=== PATIENT | male | born 1925 | race Caucasian/White ===

== ENCOUNTER 2017-01-05 11:50 | Inpatient (IN) | payer OTHER ==
[~2017-01-05] VITALS: Ht 182.9 cm; Wt 85.0 kg
[2017-01-05 12:35] LABS: HEMATOCRIT 39.7 % (38.0-50.0); MCH 28.2 PG (29.0-34.0); MEAN PLAT.VOLUME 10.5 uM^3 (9.0-12.4); PLATELET COUNT 195 K/uL (156-360); RBC DIS.WIDTH-CV 15.9 % (11.8-14.6); RBC DIS.WIDTH-SD 51.4 % (39-53); RED BLOOD COUNT 4.51 M/uL (4.00-5.50)
[2017-01-05 12:47] LABS: CHLORIDE 100 mEq/L (99-109); POTASSIUM 3.6 mEq/L (3.7-5.4); SODIUM 135 mEq/L (136-147)
[2017-01-05 12:49] LABS: GLUCOSE 149 mg/dL (70-99)
[2017-01-05 12:51] LABS: ANION GAP 9 MEQ/L (2-14)
[2017-01-05 12:53] LABS: GFR ESTIMATE (CALCULATED) > 59 mL/min/
[2017-01-05 12:54] LABS: UREA NITROGEN (BUN) 18 mg/dL (9-23)
[2017-01-05 12:57] LABS: TROP-I INTERPRETATION NEGATIVE; TROPONIN-I 0.02 ng/mL (0.0-0.30)
[2017-01-05] MEDS ORDERED: MIRTAZAPINE15 MG PO (15:32)
[2017-01-05] MEDS ORDERED: FLOMAX0.4 MG PO (15:32)
[2017-01-05] MEDS ORDERED: SYNTHROID25 MCG PO (15:33)
[2017-01-05] MEDS ORDERED: TOPROL XL50 MG PO (15:34)
[2017-01-05] MEDS ORDERED: CALAN120 MG PO (15:35)
[2017-01-05] MEDS ORDERED: ELIQUIS5 MG PO (15:35)
[2017-01-05] MEDS ORDERED: LASIX40 MG PO (15:36)
[2017-01-05] MEDS ORDERED: MEVACOR10 M1 PO (15:36)
[2017-01-05] MEDS ORDERED: LASIX20 MG PO (15:37)
[2017-01-05 20:00] VITALS: BP 150/72
[2017-01-05 21:24] LABS: INTER. NORMALIZED RATIO 1.3; PROTHROMBIN TIME 13.8 (9.2-11.2)
[2017-01-06 00:01] VITALS: BP 140/67
[2017-01-06 01:37] LABS: TROP-I INTERPRETATION NEGATIVE; TROPONIN-I 0.01 ng/mL (0.0-0.30)
[2017-01-06 03:28] LABS: MCH 28.5 PG (29.0-34.0); MCHC 32.6 G/DL (30.0-36.0); MCV 87.6 FL (86-99); MEAN PLAT.VOLUME 9.9 uM^3 (9.0-12.4); PLATELET COUNT 156 K/uL (156-360); RBC DIS.WIDTH-CV 15.7 % (11.8-14.6); RBC DIS.WIDTH-SD 50.5 % (39-53); RED BLOOD COUNT 3.54 M/uL (4.00-5.50); WHITE BLOOD COUNT 10.1 K/uL (4.1-10.2)
[2017-01-06 03:37] LABS: CHLORIDE 117 mEq/L (99-109); POTASSIUM 4.9 mEq/L (3.7-5.4)
[2017-01-06 03:45] LABS: SODIUM 155 mEq/L (136-147)
[2017-01-06 03:48] LABS: TROP-I INTERPRETATION NEGATIVE; TROPONIN-I 0.03 ng/mL (0.0-0.30)
[2017-01-06 03:56] LABS: ANION GAP 7 MEQ/L (2-14)
[2017-01-06 04:04] LABS: GLUCOSE 92 mg/dL (70-99)
[2017-01-06 04:07] LABS: GFR ESTIMATE (CALCULATED) > 59 mL/min/
[2017-01-06 04:08] LABS: UREA NITROGEN (BUN) 17 mg/dL (9-23)
[2017-01-06 04:37] VITALS: BP 138/81
[2017-01-06 08:08] VITALS: BP 142/73
[2017-01-06 10:12] LABS: INTERNAL CONTROL VALID? YES
[2017-01-06 11:32] VITALS: BP 130/71
[2017-01-06 16:21] VITALS: BP 140/75
[2017-01-06 18:21] LABS: ANION GAP 8 MEQ/L (2-14); CHLORIDE 100 MEQ/L (99-109); GFR ESTIMATE (CALCULATED) > 59 mL/min/; GLUCOSE 112 mg/dL (70-99); POTASSIUM 4.2 MEQ/L (3.7-5.4); SAMPLE HEMOLYSIS CHECK 0; SAMPLE ICTERIC CHECK 0; SAMPLE LIPEMIA CHECK 0; UREA NITROGEN (BUN) 19 mg/dL (9-23)
[2017-01-06 18:22] LABS: SODIUM 136 MEQ/L (136-147)
[2017-01-06 18:39] LABS: CREATINE KINASE 48 IU/L (1-294); TOTAL CK 48 IU/L (1-294)
[2017-01-06 19:27] LABS: CK-MB 2.6 ng/mL (0.0-4.9)
[2017-01-06 20:00] VITALS: BP 141/67
[2017-01-07 00:04] VITALS: BP 143/71
[2017-01-07 04:28] VITALS: BP 145/76
[2017-01-07 07:08] LABS: BASOPHIL COUNT 0.1 K/uL (0-0.1); EOSINOPHIL (%) 3.4 % (0-5); EOSINOPHIL COUNT 0.3 K/uL (0-0.3); HEMATOCRIT 31.3 % (38.0-50.0); IMMATURE GRANULOCYTE (%) 0.3 % (0.0-0.7); INSTRUMENT ABS NEUTROPHIL CT 4.3 K/uL; LYMPHOCYTE COUNT 3.1 K/uL (1.0-2.8); MCH 28.2 PG (29.0-34.0); MCHC 31.6 G/DL (30.0-36.0); MCV 89.2 FL (86-99); MEAN PLAT.VOLUME 9.9 uM^3 (9.0-12.4); MONOCYTE (%) 10.4 % (3-12); MONOCYTE COUNT 0.9 K/uL (0-0.8); NEUTROPHIL (%) 49.6 % (45-76); NEUTROPHIL COUNT 4.3 K/uL (1.8-6.4); PLATELET COUNT 134 K/uL (156-360); RBC DIS.WIDTH-CV 15.8 % (11.8-14.6); RBC DIS.WIDTH-SD 51.8 % (39-53); RED BLOOD COUNT 3.51 M/uL (4.00-5.50); WHITE BLOOD COUNT 8.7 K/uL (4.1-10.2)
[2017-01-07 07:30] LABS: ANION GAP 5 MEQ/L (2-14); CHLORIDE 100 MEQ/L (99-109); GFR ESTIMATE (CALCULATED) > 59 mL/min/; GLUCOSE 84 mg/dL (70-99); POTASSIUM 3.9 MEQ/L (3.7-5.4); SAMPLE HEMOLYSIS CHECK 0; SAMPLE ICTERIC CHECK 0; SAMPLE LIPEMIA CHECK 0; SODIUM 136 MEQ/L (136-147); UREA NITROGEN (BUN) 18 mg/dL (9-23)
[2017-01-07 08:43] VITALS: BP 160/84
[2017-01-07 15:55] VITALS: BP 144/78
[2017-01-07 17:22] LABS: CREATINE KINASE 41 IU/L (1-294); TOTAL CK 41 IU/L (1-294)
[2017-01-07 17:41] LABS: CK-MB 2.7 ng/mL (0.0-4.9)
[2017-01-07 20:12] VITALS: BP 154/76
[2017-01-08] VITALS (7 sets, daily range): BP systolic 97–177; BP diastolic 69–83
[2017-01-08 07:19] LABS: BASOPHIL COUNT 0.1 K/uL (0-0.1); EOSINOPHIL (%) 2.3 % (0-5); EOSINOPHIL COUNT 0.2 K/uL (0-0.3); HEMATOCRIT 31.7 % (38.0-50.0); IMMATURE GRANULOCYTE (%) 0.3 % (0.0-0.7); INSTRUMENT ABS NEUTROPHIL CT 4.6 K/uL; LYMPHOCYTE COUNT 3.4 K/uL (1.0-2.8); MCH 28.3 PG (29.0-34.0); MCHC 32.2 G/DL (30.0-36.0); MCV 87.8 FL (86-99); MEAN PLAT.VOLUME 10.5 uM^3 (9.0-12.4); MONOCYTE (%) 11.5 % (3-12); MONOCYTE COUNT 1.1 K/uL (0-0.8); NEUTROPHIL COUNT 4.6 K/uL (1.8-6.4); PLATELET COUNT 141 K/uL (156-360); RBC DIS.WIDTH-CV 15.7 % (11.8-14.6); RED BLOOD COUNT 3.61 M/uL (4.00-5.50); WHITE BLOOD COUNT 9.5 K/uL (4.1-10.2)
[2017-01-08 07:43] LABS: ANION GAP 7 MEQ/L (2-14); CHLORIDE 100 MEQ/L (99-109); GFR ESTIMATE (CALCULATED) > 59 mL/min/; GLUCOSE 88 mg/dL (70-99); POTASSIUM 4.1 MEQ/L (3.7-5.4); SAMPLE HEMOLYSIS CHECK 0; SAMPLE ICTERIC CHECK 0; SAMPLE LIPEMIA CHECK 0; SODIUM 139 MEQ/L (136-147); UREA NITROGEN (BUN) 19 mg/dL (9-23)
[2017-01-08 11:58] LABS: TYPE OF FLUID THORACENTESIS
[2017-01-08 12:48] LABS: BODY FLUID LDH 52 IU/L
[2017-01-08 12:52] LABS: BODY FLUID PROTEIN < 3.0 G/DL
[2017-01-08 12:59] LABS: BODY FLUID EOSINOPHILS 0 % (0-25); BODY FLUID RBC'S < 1000 /MM^3 (0-100); BODY FLUID WBC'S 242 /MM^3 (0-500); MONONUCLEAR WBC'S 73 %; POLYNUCLEAR WBC'S 27 % (0-25)
[2017-01-09 03:38] VITALS: BP 155/76
[2017-01-09 07:26] LABS: CHLORIDE 101 MEQ/L (99-109); GFR ESTIMATE (CALCULATED) > 59 mL/min/; GLUCOSE 92 mg/dL (70-99); POTASSIUM 3.4 MEQ/L (3.7-5.4); SAMPLE HEMOLYSIS CHECK 0; SAMPLE ICTERIC CHECK 0; SAMPLE LIPEMIA CHECK 0; SODIUM 139 MEQ/L (136-147); UREA NITROGEN (BUN) 20 mg/dL (9-23)
[2017-01-09 07:27] LABS: ANION GAP 7 MEQ/L (2-14)
[2017-01-09 07:56] VITALS: BP 169/81
[2017-01-09 12:02] VITALS: BP 120/60; BP 169/79
[2017-01-09 16:02] VITALS: BP 144/69
[2017-01-09 20:00] VITALS: BP 162/78
[2017-01-10 00:43] VITALS: BP 147/87
[2017-01-10 01:25] LABS: BODY FLUID PH 7.9 (())
[2017-01-10 03:38] VITALS: BP 146/72
[2017-01-10 04:26] LABS: BASOPHIL COUNT 0.1 K/uL (0-0.1); EOSINOPHIL (%) 2.3 % (0-5); EOSINOPHIL COUNT 0.2 K/uL (0-0.3); HEMATOCRIT 33.3 % (38.0-50.0); IMMATURE GRANULOCYTE (%) 0.2 % (0.0-0.7); INSTRUMENT ABS NEUTROPHIL CT 4.8 K/uL; LYMPHOCYTE COUNT 3.7 K/uL (1.0-2.8); MCH 28.1 PG (29.0-34.0); MCHC 32.4 G/DL (30.0-36.0); MCV 86.7 FL (86-99); MEAN PLAT.VOLUME 10.2 uM^3 (9.0-12.4); MONOCYTE (%) 10.9 % (3-12); MONOCYTE COUNT 1.1 K/uL (0-0.8); NEUTROPHIL (%) 48.5 % (45-76); NEUTROPHIL COUNT 4.8 K/uL (1.8-6.4); PLATELET COUNT 157 K/uL (156-360); RBC DIS.WIDTH-CV 15.9 % (11.8-14.6); RED BLOOD COUNT 3.84 M/uL (4.00-5.50); WHITE BLOOD COUNT 9.9 K/uL (4.1-10.2)
[2017-01-10 04:40] LABS: POTASSIUM 3.5 mEq/L (3.7-5.4); SODIUM 139 mEq/L (136-147)
[2017-01-10 04:42] LABS: GLUCOSE 108 mg/dL (70-99)
[2017-01-10 04:43] LABS: ANION GAP 7 MEQ/L (2-14)
[2017-01-10 04:45] LABS: GFR ESTIMATE (CALCULATED) 55 mL/min/
[2017-01-10 04:46] LABS: UREA NITROGEN (BUN) 24 mg/dL (9-23)
[2017-01-10 04:53] LABS: CHLORIDE 102 mEq/L (99-109)
[2017-01-10 08:07] VITALS: BP 175/79
[2017-01-10 11:27] VITALS: BP 142/64
[2017-01-10 15:47] VITALS: BP 153/72
[2017-01-10 19:44] VITALS: BP 144/72
[2017-01-11] VITALS (8 sets, daily range): BP systolic 139–155; BP diastolic 66–80
[2017-01-11 08:04] LABS: BASOPHIL COUNT 0.1 K/uL (0-0.1); EOSINOPHIL (%) 3.2 % (0-5); EOSINOPHIL COUNT 0.3 K/uL (0-0.3); HEMATOCRIT 31.3 % (38.0-50.0); IMMATURE GRANULOCYTE (%) 0.2 % (0.0-0.7); INSTRUMENT ABS NEUTROPHIL CT 3.9 K/uL; LYMPHOCYTE COUNT 3.5 K/uL (1.0-2.8); MCHC 31.9 G/DL (30.0-36.0); MCV 87.7 FL (86-99); MEAN PLAT.VOLUME 10.7 uM^3 (9.0-12.4); MONOCYTE (%) 10.4 % (3-12); MONOCYTE COUNT 0.9 K/uL (0-0.8); NEUTROPHIL (%) 45.5 % (45-76); NEUTROPHIL COUNT 3.9 K/uL (1.8-6.4); PLATELET COUNT 139 K/uL (156-360); RBC DIS.WIDTH-CV 15.8 % (11.8-14.6); RBC DIS.WIDTH-SD 51.5 % (39-53); RED BLOOD COUNT 3.57 M/uL (4.00-5.50); WHITE BLOOD COUNT 8.6 K/uL (4.1-10.2)
[2017-01-11 08:30] LABS: ANION GAP 6 MEQ/L (2-14); CHLORIDE 102 MEQ/L (99-109); GFR ESTIMATE (CALCULATED) > 59 mL/min/; GLUCOSE 98 mg/dL (70-99); POTASSIUM 3.6 MEQ/L (3.7-5.4); SAMPLE HEMOLYSIS CHECK 0; SAMPLE ICTERIC CHECK 0; SAMPLE LIPEMIA CHECK 0; SODIUM 138 MEQ/L (136-147); UREA NITROGEN (BUN) 23 mg/dL (9-23)
[2017-01-12] VITALS: BP 156/74
[2017-01-12 04:00] VITALS: BP 151/70
[2017-01-12 07:14] VITALS: BP 144/62
[2017-01-12 07:22] LABS: EOSINOPHIL (%) 3.3 % (0-5); EOSINOPHIL COUNT 0.3 K/uL (0-0.3); HEMATOCRIT 32.9 % (38.0-50.0); IMMATURE GRANULOCYTE (%) 0.3 % (0.0-0.7); INSTRUMENT ABS NEUTROPHIL CT 4.2 K/uL; LYMPHOCYTE COUNT 3.4 K/uL (1.0-2.8); MCH 27.5 PG (29.0-34.0); MCHC 31.3 G/DL (30.0-36.0); MEAN PLAT.VOLUME 10.7 uM^3 (9.0-12.4); MONOCYTE (%) 10.1 % (3-12); MONOCYTE COUNT 0.9 K/uL (0-0.8); NEUTROPHIL (%) 47.6 % (45-76); NEUTROPHIL COUNT 4.2 K/uL (1.8-6.4); PLATELET COUNT 141 K/uL (156-360); RBC DIS.WIDTH-CV 16.1 % (11.8-14.6); RBC DIS.WIDTH-SD 52.1 % (39-53); RED BLOOD COUNT 3.74 M/uL (4.00-5.50); WHITE BLOOD COUNT 8.8 K/uL (4.1-10.2)
[2017-01-12 07:53] LABS: ANION GAP 7 MEQ/L (2-14); CHLORIDE 103 MEQ/L (99-109); GFR ESTIMATE (CALCULATED) > 59 mL/min/; GLUCOSE 100 mg/dL (70-99); POTASSIUM 3.7 MEQ/L (3.7-5.4); SAMPLE HEMOLYSIS CHECK 0; SAMPLE ICTERIC CHECK 0; SAMPLE LIPEMIA CHECK 0; SODIUM 139 MEQ/L (136-147); UREA NITROGEN (BUN) 23 mg/dL (9-23)
[2017-01-12 10:35] VITALS: BP 130/67
[2017-01-12] MEDS ORDERED: DUONEB 2.5-0.5 M3 ML AEROSOL (12:22)
[2017-01-12] MEDS ORDERED: CEPHALEXIN500 MG PO (12:22)
[2017-01-12] MEDS ORDERED: CARVEDILOL3.125 MG PO (12:23)
[2017-01-12] MEDS ORDERED: K-DUR20 MEQ PO (12:24)
[2017-01-12] MEDS ORDERED: FUROSEMIDE40 MG PO (12:24)
[2017-01-12] MEDS ORDERED: ASPIR-LOW81 MG PO (12:24)
[2017-01-12] MEDS ORDERED: FAMOTIDINE20 MG PO (12:25)
[2017-01-12] MEDS ORDERED: LOSARTAN POTASS50 MG PO (12:28)
== END 2017-01-12 14:47 | DRG 291 ==
LOC: EME 11:50 → EDOF 14:34 → 5SOUTH 14:34
PROVIDERS: Internal Medicine; Internal Medicine Pulmonary Disease; Nurse Practitioner Adult Health; Physician Assistant Medical
PROC: 0H9BXZX Drainage of Right Upper Arm Skin, External Approach, Diagnostic (ICD-10-PCS; principal; 2017-01-07)
PROC: 0W993ZZ Drainage of Right Pleural Cavity, Percutaneous Approach (ICD-10-PCS; 2017-01-08)
DX: I11.0 Hypertensive heart disease with heart failure (principal); J96.01 Acute respiratory failure with hypoxia; J18.9 Pneumonia, unspecified organism; E87.1 Hypo-osmolality and hyponatremia; T80.1XXA Vascular complications following infusion, transfusion and therapeutic injection, initial encounter; J98.11 Atelectasis; L02.413 Cutaneous abscess of right upper limb; L03.113 Cellulitis of right upper limb; J90 Pleural effusion, not elsewhere classified; I50.33 Acute on chronic diastolic (congestive) heart failure; Z99.3 Dependence on wheelchair; E87.6 Hypokalemia; E11.65 Type 2 diabetes mellitus with hyperglycemia; E78.2 Mixed hyperlipidemia; I80.8 Phlebitis and thrombophlebitis of other sites; Y84.8 Other medical procedures as the cause of abnormal reaction of the patient, or of later complication, without mention of misadventure at the time of the procedure; Y92.239 Unspecified place in hospital as the place of occurrence of the external cause; E03.9 Hypothyroidism, unspecified; F03.90 Unspecified dementia, unspecified severity, without behavioral disturbance, psychotic disturbance, mood disturbance, and anxiety; I27.2 Other secondary pulmonary hypertension; I34.0 Nonrheumatic mitral (valve) insufficiency; Z86.718 Personal history of other venous thrombosis and embolism; N40.0 Benign prostatic hyperplasia without lower urinary tract symptoms; S40.021A Contusion of right upper arm, initial encounter
CPT/HCPCS: 71020; 71275; 73200; 73201; 80048; 80048 91; 82436; 82550; 82553; 82945; 83605; 83615 91; 83880; 83930; 83935; 83986 90; 84133; 84157; 84300; 84484; 85025; 85027; 85610; 85730; 87040; 87070; 87075; 87116; 87205; 87206; 87449; 88108; 88305; 89051; 93005; 93306; 93970; 93971; 94640; 94640 76; 94760; 94799; 97530 GO; 97530 GP; 99202; 99281; 99285; C1894; J0690; J1650; J1940; J1956; J3370; J7050; J7070; S0030

== ENCOUNTER 2017-06-29 21:01 | Inpatient (IN) | payer OTHER ==
[~2017-06-29] VITALS: Ht 182.9 cm; Wt 85.0 kg
[~2017-06-29 21:01] MED LIST: ASPIR-LOW81 MG PO; CALAN120 MG PO; CARVEDILOL3.125 MG PO; CEPHALEXIN500 MG PO; DUONEB 2.5-0.5 M3 ML AEROSOL; ELIQUIS5 MG PO; FAMOTIDINE20 MG PO; FLOMAX0.4 MG PO; FUROSEMIDE40 MG PO; K-DUR20 MEQ PO; LASIX20 MG PO; LASIX40 MG PO; LOSARTAN POTASS50 MG PO; MEVACOR10 M1 PO; MIRTAZAPINE15 MG PO; SYNTHROID25 MCG PO; TOPROL XL50 MG PO
[2017-06-29 22:51] LABS: BASOPHIL COUNT 0.1 K/uL (0-0.1); EOSINOPHIL COUNT 0.6 K/uL (0-0.3); HEMATOCRIT 36.4 % (38.0-50.0); IMMATURE GRANULOCYTE (%) 0.2 % (0.0-0.7); INSTRUMENT ABS NEUTROPHIL CT 3.8 K/uL; LYMPHOCYTE COUNT 3.3 K/uL (1.0-2.8); MCH 28.7 PG (29.0-34.0); MCHC 32.7 G/DL (30.0-36.0); MCV 87.9 FL (86-99); MEAN PLAT.VOLUME 10.2 uM^3 (9.0-12.4); MONOCYTE (%) 8.2 % (3-12); MONOCYTE COUNT 0.7 K/uL (0-0.8); NEUTROPHIL (%) 45.2 % (45-76); NEUTROPHIL COUNT 3.8 K/uL (1.8-6.4); PLATELET COUNT 136 K/uL (156-360); RBC DIS.WIDTH-CV 14.8 % (11.8-14.6); RBC DIS.WIDTH-SD 47.6 % (39-53); RED BLOOD COUNT 4.14 M/uL (4.00-5.50); WHITE BLOOD COUNT 8.4 K/uL (4.1-10.2)
[2017-06-29 22:55] LABS: INTER. NORMALIZED RATIO 1.4; PROTHROMBIN TIME 15.5 SEC (10.2-12.9)
[2017-06-29 22:59] LABS: CHLORIDE 110 mEq/L (99-109); POTASSIUM 4.3 mEq/L (3.7-5.4); SODIUM 143 mEq/L (136-147)
[2017-06-29 23:02] LABS: ANION GAP 10 MEQ/L (2-14)
[2017-06-29 23:03] LABS: TOTAL BILIRUBIN 0.4 mg/dL (0.0-1.0)
[2017-06-29 23:05] LABS: ALKALINE PHOSPHATASE 88 IU/L (3-129); GFR ESTIMATE (CALCULATED) 47 mL/min/
[2017-06-29 23:06] LABS: UREA NITROGEN (BUN) 23 mg/dL (9-23)
[2017-06-29 23:11] LABS: GLUCOSE 114 mg/dL (70-99)
[2017-06-30 05:14] VITALS: BP 192/95
[2017-06-30 05:35] LABS: BASOPHIL COUNT 0.1 K/uL (0-0.1); EOSINOPHIL (%) 6.7 % (0-5); EOSINOPHIL COUNT 0.7 K/uL (0-0.3); HEMATOCRIT 38.7 % (38.0-50.0); IMMATURE GRANULOCYTE (%) 0.1 % (0.0-0.7); INSTRUMENT ABS NEUTROPHIL CT 3.2 K/uL; LYMPHOCYTE COUNT 5.5 K/uL (1.0-2.8); MCH 29.5 PG (29.0-34.0); MCHC 33.3 G/DL (30.0-36.0); MCV 88.4 FL (86-99); MEAN PLAT.VOLUME 10.6 uM^3 (9.0-12.4); MONOCYTE COUNT 0.8 K/uL (0-0.8); NEUTROPHIL (%) 31.2 % (45-76); NEUTROPHIL COUNT 3.2 K/uL (1.8-6.4); PLATELET COUNT 156 K/uL (156-360); RBC DIS.WIDTH-CV 14.7 % (11.8-14.6); RBC DIS.WIDTH-SD 47.8 % (39-53); RED BLOOD COUNT 4.38 M/uL (4.00-5.50); WHITE BLOOD COUNT 10.4 K/uL (4.1-10.2)
[2017-06-30 05:57] LABS: ANION GAP 8 MEQ/L (2-14); CHLORIDE 108 MEQ/L (99-109); GFR ESTIMATE (CALCULATED) 47 mL/min/; GLUCOSE 101 mg/dL (70-99); HDL CHOLESTEROL 39 MG/DL (Desirable>=40); LDL CHOLESTEROL 71 mg/dL (Desirable<100); NON-HDL CHOLESTEROL 84 mg/dL (Desirable<160); POTASSIUM 4.1 MEQ/L (3.7-5.4); SAMPLE HEMOLYSIS CHECK 0; SAMPLE ICTERIC CHECK 0; SAMPLE LIPEMIA CHECK 0; SODIUM 144 MEQ/L (136-147); TOTAL CHOLESTEROL 123 mg/dL (Desirable<200); TRIGLYCERIDES 67 MG/DL (Normal: <150); UREA NITROGEN (BUN) 24 mg/dL (9-23)
[2017-06-30 06:04] LABS: ADD MIUA? YES; BILIRUBIN NEGATIVE; BLOOD MODERATE; COLOR YELLOW ((YELLOW)); GLUCOSE (STRIP) NEGATIVE; KETONES NEGATIVE; LEUKOCYTES TRACE; NITRITE NEGATIVE; PROTEIN (STRIP) NEGATIVE; SPECIFIC GRAVITY 1.009 (1.000-1.030); UROBILINOGEN 0.2 MG/DL (0.2-1.0)
[2017-06-30 06:30] VITALS: BP 178/80
[2017-06-30 06:34] LABS: BACTERIA NONE SEEN /HPF; EPITHELIAL CELLS RARE /HPF; HYALINE CASTS 0-5 /LPF; MUCUS TRACE /LPF; RED BLOOD CELLS 15-20 /HPF (0-5)
[2017-06-30 07:35] LABS: Estimated Average Glucose 131 mg/dL (70-123); HEMOGLOBIN A1c (GLYCOHEMOGLOB) 6.2 % HGB (Below 5.7)
[2017-06-30 09:34] VITALS: BP 159/81
[2017-06-30 12:12] VITALS: BP 177/84
[2017-06-30] MEDS ORDERED: SYNTHROID25 MCG PO (12:44)
[2017-06-30] MEDS ORDERED: PEPCID40 MG PO (12:46)
[2017-06-30] MEDS ORDERED: VERAPAMIL HCL120 M2 PO (12:48)
[2017-06-30] MEDS ORDERED: LOVASTATIN10 MG PO (12:49)
[2017-06-30] MEDS ORDERED: LASIX20 MG PO (12:51)
[2017-06-30] MEDS ORDERED: POTASSIUM CHLO20 ME2 PO (12:55)
[2017-06-30] MEDS ORDERED: FLOMAX0.4 MG PO (13:08)
[2017-06-30] MEDS ORDERED: REMERON15 M2 PO (13:12)
[2017-06-30 17:37] LABS: POINT-OF-CARE METER ID UU13113831
[2017-06-30 20:00] VITALS: BP 178/89
[2017-06-30 21:30] LABS: POINT-OF-CARE METER ID UU13113831
[2017-07-01 01:09] VITALS: BP 163/79
[2017-07-01 04:20] VITALS: BP 166/80
[2017-07-01 05:33] LABS: BASOPHIL COUNT 0.1 K/uL (0-0.1); EOSINOPHIL COUNT 0.7 K/uL (0-0.3); HEMATOCRIT 33.7 % (38.0-50.0); IMMATURE GRANULOCYTE (%) 0.2 % (0.0-0.7); INSTRUMENT ABS NEUTROPHIL CT 3.3 K/uL; LYMPHOCYTE COUNT 3.4 K/uL (1.0-2.8); MCHC 33.5 G/DL (30.0-36.0); MCV 89.4 FL (86-99); MEAN PLAT.VOLUME 11.2 uM^3 (9.0-12.4); MONOCYTE (%) 7.8 % (3-12); MONOCYTE COUNT 0.6 K/uL (0-0.8); NEUTROPHIL (%) 40.9 % (45-76); NEUTROPHIL COUNT 3.3 K/uL (1.8-6.4); PLATELET COUNT 141 K/uL (156-360); RBC DIS.WIDTH-CV 14.7 % (11.8-14.6); RBC DIS.WIDTH-SD 48.7 % (39-53); RED BLOOD COUNT 3.77 M/uL (4.00-5.50); WHITE BLOOD COUNT 8.1 K/uL (4.1-10.2)
[2017-07-01 05:56] LABS: ANION GAP 6 MEQ/L (2-14); CHLORIDE 108 MEQ/L (99-109); GFR ESTIMATE (CALCULATED) 55 mL/min/; GLUCOSE 83 mg/dL (70-99); POTASSIUM 3.8 MEQ/L (3.7-5.4); SAMPLE HEMOLYSIS CHECK 0; SAMPLE ICTERIC CHECK 0; SAMPLE LIPEMIA CHECK 0; SODIUM 140 MEQ/L (136-147); UREA NITROGEN (BUN) 25 mg/dL (9-23)
[2017-07-01 08:08] LABS: POINT-OF-CARE METER ID UU13113700
[2017-07-01 09:00] VITALS: BP 168/70
[2017-07-01] MEDS ORDERED: ASPIR-LOW81 MG PO (10:16)
[2017-07-01] MEDS ORDERED: ELIQUIS5 MG PO (10:16)
[2017-07-01 12:04] LABS: POINT-OF-CARE METER ID UU13113700
[2017-07-01 12:10] VITALS: BP 169/81
== END 2017-07-01 12:36 | disposition home or self-care (01) | DRG 65 ==
LOC: EME 21:01 → EDOF 06-30 02:06 → ENRESERV 06-30 02:06 → EDOF 06-30 02:06 → ENRESERV 06-30 02:18 → 5WEST 06-30 04:52 → ENRESERV 06-30 10:32 → 5WEST 06-30 10:32 → CANRESERV 06-30 10:32 → 5WEST 07-01 12:36
PROVIDERS: Emergency Medicine; Hospitalist; Internal Medicine
DX: I63.9 Cerebral infarction, unspecified (principal); I82.432 Acute embolism and thrombosis of left popliteal vein; I82.492 Acute embolism and thrombosis of other specified deep vein of left lower extremity; I82.442 Acute embolism and thrombosis of left tibial vein; N17.9 Acute kidney failure, unspecified; N40.0 Benign prostatic hyperplasia without lower urinary tract symptoms; R47.01 Aphasia; I11.0 Hypertensive heart disease with heart failure; I50.32 Chronic diastolic (congestive) heart failure; Z99.3 Dependence on wheelchair; E03.9 Hypothyroidism, unspecified; E78.5 Hyperlipidemia, unspecified; Z86.718 Personal history of other venous thrombosis and embolism; Z96.641 Presence of right artificial hip joint; Z79.01 Long term (current) use of anticoagulants; R29.700 NIHSS score 0; D69.6 Thrombocytopenia, unspecified; D64.9 Anemia, unspecified; G93.89 Other specified disorders of brain; E11.9 Type 2 diabetes mellitus without complications; Z87.891 Personal history of nicotine dependence
CPT/HCPCS: 36415; 70450; 70551; 71250; 80048; 80053; 80061; 81003; 82948; 83036; 83880; 85025; 85610; 85730; 90686; 93005; 93880; 93971; 99281; 99285; J1815; J7030